=== PATIENT | male | born 1995 | race Caucasian/White ===

== ENCOUNTER 2018-06-26 08:22 | Emergency (ER) | payer BC ==
[2016-04-23 10:27] VITALS: Wt 79.4 kg
[~2018-06-26 08:22] MED LIST: DOCU-202 PO; OXYC-854 PO; OXYC5TAB38 PO
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
[2018-06-26] MEDS ORDERED: DIPHTH/TETANUS/ACEL. PERTUSSIS IM ONLY ONE (09:10)
[2018-06-26] MEDS ORDERED: cefTRIAXone 1 GM VIAL IM ONE (09:35)
[2018-06-26] MEDS ORDERED: LIDOCAINE 1% MDV 200 MG/20 ML INJ ONE (09:35)
[2018-06-26] MEDS ORDERED: DOXY-181 PO (09:39)
[2018-06-26 10:05] VITALS: BP 138/82
== END 2018-06-26 10:06 | disposition home or self-care (01) ==
LOC: ER 08:40
DX: S91.312A Laceration without foreign body, left foot, initial encounter (principal); W26.0XXA Contact with knife, initial encounter
CPT/HCPCS: 12002; 90471; 90715; 96372; 99284; J0696; J2001